=== PATIENT | male | born 1995 | race Caucasian/White ===

== ENCOUNTER 2017-07-08 16:01 | Emergency (ER) | payer BC ==
--- NOTE | 2017-07-08 16:39 | EDPHY ---
H & P Stated Complaint: LUQ pain and pain with breathing since 07/06/17. Time Seen by Provider: 07/08/17 16:38 HPI/ROS: HPI: This is a 21-year-old male who presents with Chief Complaint: LUQ pain and pain with breathing since 07/06/17. Location: Left lower rib/left upper quadrant Quality: Sharp pain Duration: Since Thursday Signs and Symptoms: no shortness of breath at rest, no shortness of breath on exertion, no cough, no chest pain, no palpitations, no lower extremity edema, no wheezing, no orthopnea, no paroxysmal nocturnal dyspnea, no fever, no injury/ trauma, no hemoptysis, no carpal pedal spasms Timing: Worsening Severity: 10/30 Context: Medical history of asthma and tobacco user presents with sudden onset Thursday after drinking 3 mixed drinks of left upper quadrant and left lower rib sharp, nonradiating, constant pain. Patient reports that worsened into the evening. He reports the pain is always present. Pain is worsened with inspiration. He reports that he is originally from [place] but he has not been home since February. Denies any lower extremity edema/fever/cough/ palpitation/shortness of breath/wheezing/respiratory symptoms. Patient reports eating and drinking normally. Denies any nausea/vomiting/diarrhea. Patient does not have any back pain and does not remember lifting anything heavy or an injury. Patient reports that he is concerned about his liver. Has not had any liver problems in the past. Last bowel movement 3 days ago. Modifying Factors: None Comment: ROS: see HPI Constitutional: No fever, no chills, no weight loss Eyes: No blurred vision Respiratory: No shortness of breath, no cough Cardiovascular: No chest pain, no palpitations, no lower extremity edema Gastrointestinal: No nausea, no vomiting, no diarrhea Genitourinary: No dysuria Extremities: No myalgias Neurologic: No weakness, no numbness Skin: No rashes Hematologic: No bruising, no bleeding MEDICAL/SURGICAL/SOCIAL HISTORY: Medical history: Generally healthy. Does not take any regular medications. Surgical history: Denies Social history: Employed. Originally from [place]. Family history noncontributory. CONSTITUTIONAL: Extremely well-appearing, polite and cooperative, husky teenage white male, awake and alert, no obvious distress HEENT: Atraumatic and normocephalic, PERRL, EOMI. Sclerae nonicteric. Nares patent; no rhinorrhea; no nasal mucosal edema. Tympanic membranes clear. Oropharynx clear, no exudate and moist pink mucosa. Airway patent. No lymphadenopathy. No meningismus. Cardiovascular: Normal S1/S2, regular rate, regular rhythm, without murmur rub or gallop. PULMONARY/CHEST: Symmetrical and moderate reproducible left anterior rib tenderness. Clear to auscultation bilaterally. Good air movement. No accessory muscle usage. ABDOMEN: Soft, nondistended, moderate left upper quadrant tenderness, no rebound, no guarding, no peritoneal signs, no masses or organomegaly. No CVAT. EXTREMITIES: 2/2 pulses, strength 5/5, no deformities, no clubbing, no cyanosis or edema. NEUROLOGICAL: no focal neuro deficits. GCS 15. SKIN: Warm and dry, no erythema. no rash. Good capillary refill. Source: Patient Exam Limitations: No limitations - Personal History Current Tetanus Diphtheria and Acellular Pertussis (TDAP): Yes - Medical/Surgical History Hx Asthma: Yes Hx Chronic Respiratory Disease: No Hx Diabetes: No Hx Cardiac Disease: No Hx Renal Disease: No Hx Cirrhosis: No Hx Alcoholism: No Hx HIV/AIDS: No Hx Splenectomy or Spleen Trauma: No Other PMH: Asthma. - Social History Smoking Status: Current some day smoker Constitutional: Initial Vital Signs Temperature (C) 36.4 C 07/08/17 16:04 Heart Rate 86 07/08/17 16:04 Respiratory Rate 18 07/08/17 16:04 Blood Pressure 146/93 H 07/08/17 16:04 O2 Sat (%) 96 07/08/17 16:04 O2 Delivery Mode Room Air Allergies/Adverse Reactions: No Known Allergies Allergy (Unverified 07/08/17 16:07) Home Medications: Medication Instructions Recorded NK [No Known Home Meds] 07/08/17 Medical Decision Making - Diagnostics Imaging Results: Imaging Impressions Abdomen X-Ray 07/08/17 16:44 Impression: Constipation. Cannot absolutely exclude pneumatosis of the ascending colon. Abdomen CT 07/08/17 17:29 Impression: 1.There is a small amount of pelvic free fluid of undetermined etiology. 2. No pneumatosis colli. 3. Mild steatosis of the liver. Results called and discussed with Mary Ann Hernández at 07/08/2017 18:57 General information for patients regarding this examination can be found at [email or web address]. If you have questions or comments about this report, please contact me at (hospital) or [phone] (cell). ED Course/Re-evaluation: Labs, IV medications, acute abdominal series Do not believe that this is cardiac related. Patient politely declined EKG. 1650: Given IV Toradol Acute abdominal series x-ray reviewed via PACs; moderate constipation noted. Radiology question equivocal ascending colon pneumatosis. CT abdomen and pelvis scan ordered to further evaluate. 1745: Labs reviewed. No signs of VTE/anemia/elevated liver enzymes/JU/ electrolyte imbalance 1900: Called by radiologist who advised that CT abdomen and pelvis scan shows moderate constipation, no diverticulitis/pancreatitis/obstruction/pneumo ptosis Reassessed patient and discussed CT abdomen and pelvis/x-ray showing constipation. Abdomen soft and nontender. Advised MiraLax with Gatorade daily; push fluids; etc. Patient passed p.o. Trial prior to discharge. This patient was seen under the supervision of my secondary supervising physician. I evaluated care for this patient independently. Discussed this patient with Dr. Maier who did not see the patient. Differential Diagnosis: Abdominal pain including but not limited to gastritis, peptic ulcer disease, pancreatitis, pneumothorax, pulmonary embolism, musculoskeletal. - Data Points Laboratory Results: Laboratory Results 07/08/17 16:53 07/08/17 16:53 07/08/17 07/08/17 07/08/17 16:53 16:53 16:53 WBC 9.54 10^3/uL H 10^3/uL (3.80-9.50) RBC 5.38 10^6/uL 10^6/uL (4.40-6.38) Hgb 16.3 g/dL g/dL (13.7-17.5) Hct 47.3 % % (40.0-51.0) MCV 87.9 fL fL (81.5-99.8) MCH 30.3 pg pg (27.9-34.1) MCHC 34.5 g/dL g/dL (32.4-36.7) RDW 12.4 % % (11.5-15.2) Plt Count 249 10^3/uL 10^3/uL (150-400) MPV 10.6 fL fL (8.7-11.7) Neut % (Auto) 66.4 % % (39.3-74.2) Lymph % (Auto) 21.9 % % (15.0-45.0) Ballard % (Auto) 8.2 % % (4.5-13.0) Eos % (Auto) 2.4 % % (0.6-7.6) Baso % (Auto) 0.7 % % (0.3-1.7) Nucleat RBC Rel Count 0.0 % % (0.0-0.2) Absolute Neuts (auto) 6.33 10^3/uL 10^3/uL (1.70-6.50) Absolute Lymphs (auto) 2.09 10^3/uL 10^3/uL (1.00-3.00) Absolute Monos (auto) 0.78 10^3/uL 10^3/uL (0.30-0.80) Absolute Eos (auto) 0.23 10^3/uL 10^3/uL (0.03-0.40) Absolute Basos (auto) 0.07 10^3/uL 10^3/uL (0.02-0.10) Absolute Nucleated RBC 0.00 10^3/uL 10^3/uL (0-0.01) Immature Gran % 0.4 % % (0.0-1.1) Immature Gran # 0.04 10^3/uL 10^3/uL (0.00-0.10) D-Dimer 0.36 ug/mLFEU ug/mLFEU (0.00-0.50) Sodium 141 mEq/L mEq/L (135-145) Potassium 4.2 mEq/L mEq/L (3.5-5.2) Chloride 104 mEq/L mEq/L (97-110) Carbon Dioxide 22 mEq/l mEq/l (22-31) Anion Gap 15 mEq/L mEq/L (8-16) BUN 17 mg/dL mg/dL (7-23) Creatinine 1.0 mg/dL mg/dL (0.7-1.3) Estimated GFR > 60 Glucose 91 mg/dL mg/dL (70-100) Calcium 9.7 mg/dL mg/dL (8.5-10.4) Total Bilirubin 0.4 mg/dL mg/dL (0.1-1.4) Conjugated Bilirubin 0.4 mg/dL mg/dL (0.0-0.5) Unconjugated Bilirubin 0.0 mg/dL mg/dL (0.0-1.1) AST 31 IU/L IU/L (17-59) ALT 68 IU/L IU/L (21-72) Alkaline Phosphatase 72 IU/L IU/L (38-126) Total Protein 7.6 g/dL g/dL (6.3-8.2) Albumin 4.5 g/dL g/dL (3.5-5.0) Lipase 56 IU/L IU/L (23-300) Medications Given: Discontinued Medications Ketorolac Tromethamine (Toradol) 30 mg IVP EDNOW ONE Stop: 07/08/17 16:45 Last Admin: 07/08/17 17:10 Dose: 30 mg Departure - Departure Disposition: Home, Routine, Self-Care Clinical Impression: Abdominal gas pain Constipation Qualifiers: Constipation type: other constipation type Qualified Code(s): K59.09 - Other constipation Condition: Good Instructions: Constipation (ED), Gas and Bloating (ED) Additional Instructions: Consume a minimum of 8-10 glasses of water or electrolyte fluid replacement drinks that include Gatorade, Powerade, Pedialyte. Eat a bland diet for the next 48 hours and then slowly advance as tolerated. Take [id number] MiraLax with a bottle of Gatorade daily times 3-5 days until having normal soft bowel movements. Take [id number] simethicone as needed for abdominal gas pain. Eat a diet rich in fruits and vegetables. Stop drinking alcohol excessively and bingeing. Establish primary care at [facility] Return to the ER immediately if you experience new, continued or worsening abdominal pain, fevers/chills, inability to tolerate oral intake, new pain, or any other symptoms that concern you. Referrals: [facility],. [Clinic] - As per Instructions
[2017-07-08] MEDS ORDERED: KETOROLAC 30 MG/1 ML SDV IVP ONE (16:44)
[2017-07-08 17:13] LABS: PLATELET COUNT 249 10^3/uL (150-400)
[2017-07-08] MEDS ORDERED: IOPAMIDOL (ISOVUE-300) 100 ML BTL ONE (17:48)
[2017-07-08 19:23] VITALS: BP 145/81
== END 2017-07-08 19:22 | disposition home or self-care (01) ==
DX: K59.09 Other constipation (principal); J45.909 Unspecified asthma, uncomplicated; F17.200 Nicotine dependence, unspecified, uncomplicated
CPT/HCPCS: 96374; J1885; Q9967